=== PATIENT | female | born 2000 | race Caucasian/White ===

== ENCOUNTER 2022-06-20 04:15 | Emergency (ER) | payer BC, OTHER ==
[~2022-06-20] VITALS: Ht 177.8 cm; Wt 90.0 kg
[2022-06-20 04:59] VITALS: BP 134/68
[2022-06-20] MEDS ORDERED: NITR-52 PO (05:19)
[2022-06-20 05:22] LABS: Urine Bacteria FEW /hpf (None Seen); Urine Blood TRACE /uL (Negative); Urine Specific Gravity 1.012 (1.001-1.035); Urine WBC 4 /hpf (0 - 5)
== END 2022-06-20 05:37 | disposition home or self-care (01) ==
LOC: ER 04:15
DX: N39.0 Urinary tract infection, site not specified (principal)
CPT/HCPCS: 81001